=== PATIENT | female | born 1945 | race Two or more races ===

== ENCOUNTER 2018-05-15 09:05 | Outpatient (CLI) | payer OTHER | END 2018-05-15 09:33 | disposition home or self-care (01) | LOC: RAD 501 09:05 | DX: F45.8 Other somatoform disorders (principal); R06.02 Shortness of breath; J32.8 Other chronic sinusitis ==

== ENCOUNTER → 2021-05-24 13:12 | Outpatient (CLI) | payer OTHER | END | disposition home or self-care (01) | LOC: NUCLEAR 13:12 | PROVIDERS: ATTEND Specialist | DX: M81.0 Age-related osteoporosis without current pathological fracture (principal); M79.661 Pain in right lower leg; M79.662 Pain in left lower leg ==

== ENCOUNTER 2021-07-18 10:13 | Outpatient (CLI) | payer OTHER | END 2021-07-18 10:27 | disposition home or self-care (01) | LOC: MAMO-SONO 10:13 | PROVIDERS: ATTEND Specialist | DX: R92.1 Mammographic calcification found on diagnostic imaging of breast (principal); Z12.31 Encounter for screening mammogram for malignant neoplasm of breast; R92.8 Other abnormal and inconclusive findings on diagnostic imaging of breast ==

== ENCOUNTER 2021-10-16 08:44 | Outpatient (CLI) | payer OTHER | END 2021-10-16 08:52 | disposition home or self-care (01) | LOC: SONOGRAMA 08:44 | PROVIDERS: ATTEND Internal Medicine | DX: K80.80 Other cholelithiasis without obstruction (principal); R10.84 Generalized abdominal pain ==

== ENCOUNTER 2021-12-19 07:16 | Outpatient (CLI) | payer OTHER | END 2021-12-19 07:17 | disposition home or self-care (01) | LOC: NUCLEAR 07:16 | PROVIDERS: ATTEND Internal Medicine | DX: K80.80 Other cholelithiasis without obstruction (principal) | CPT/HCPCS: 78227; A9537 ==

== ENCOUNTER 2022-08-20 13:00 | Outpatient (CLI) | payer OTHER | END 2022-08-20 13:05 | disposition home or self-care (01) | LOC: RAD 13:00 | PROVIDERS: ATTEND Internal Medicine | DX: M16.0 Bilateral primary osteoarthritis of hip (principal) ==

== ENCOUNTER 2022-11-26 08:39 | Outpatient (CLI) | payer OTHER | END 2022-11-26 08:45 | disposition home or self-care (01) | LOC: RAD 08:39 | PROVIDERS: ATTEND Internal Medicine | DX: M54.2 Cervicalgia (principal); M54.6 Pain in thoracic spine; M54.17 Radiculopathy, lumbosacral region; S60.552A Superficial foreign body of left hand, initial encounter ==

== ENCOUNTER → 2022-12-10 | Outpatient (CLI) | payer OTHER | END | disposition home or self-care (01) | LOC: MRI 07:46 | PROVIDERS: ATTEND Internal Medicine | DX: M54.17 Radiculopathy, lumbosacral region (principal) | CPT/HCPCS: 72148 ==

== ENCOUNTER 2023-07-09 09:36 | Outpatient (CLI) | payer OTHER | END 2023-07-09 09:41 | disposition home or self-care (01) | LOC: RAD 09:36 | PROVIDERS: ATTEND Physical Medicine & Rehabilitation | DX: M25.551 Pain in right hip (principal); M25.552 Pain in left hip ==

== ENCOUNTER 2023-10-23 10:08 | Outpatient (CLI) | payer OTHER | END 2023-10-23 10:09 | disposition home or self-care (01) | LOC: NUCLEAR 10:08 | PROVIDERS: ATTEND Internal Medicine | DX: M81.0 Age-related osteoporosis without current pathological fracture (principal) ==

== ENCOUNTER 2023-12-10 10:07 | Outpatient (CLI) | payer OTHER | END 2023-12-10 10:14 | disposition home or self-care (01) | LOC: MAMO-SONO 10:07 | PROVIDERS: ATTEND Internal Medicine | DX: N64.4 Mastodynia (principal); R92.8 Other abnormal and inconclusive findings on diagnostic imaging of breast; Z12.31 Encounter for screening mammogram for malignant neoplasm of breast ==

== ENCOUNTER 2024-12-21 08:28 | Outpatient (CLI) | payer OTHER | END 2024-12-21 08:34 | disposition home or self-care (01) | LOC: MAMO-SONO 08:28 | PROVIDERS: ATTEND Student in an Organized Health Care Education/Training Program | DX: N60.11 Diffuse cystic mastopathy of right breast (principal); N60.12 Diffuse cystic mastopathy of left breast; Z12.31 Encounter for screening mammogram for malignant neoplasm of breast ==

== ENCOUNTER 2025-01-31 07:06 | Outpatient (CLI) | payer OTHER ==
[2025-01-31 07:51] LABS: HEMOGLOBIN 11.6 g/dL (12.0-15.00); MEAN CELL VOLUME 88.6 fL (80.00-100.00); MEAN CORPUSCULAR HEMOGLOBIN 30.1 pg (27.00-32.0); PLATELET COUNT 306 K/uL (150-450); RED BLOOD COUNT 3.84 M/uL (4.00-6.00)
[2025-01-31 08:03] LABS: URINE APPEARANCE Clear; URINE BILIRRUBIN Negative (NEGATIVE); URINE BLOOD Negative; URINE COLOR Yellow; URINE GLUCOSE Negative (NEGATIVE); URINE KETONE Negative (NEGATIVE); URINE LEUKOCYTE Negative; URINE NITRATE Negative; URINE PROTEIN Negative (NEGATIVE); URINE UROBILINOGEN 0.2 E.U./dl
[2025-01-31 08:07] LABS: URINE BACTERIA 19.5 uL (0.0-1933); URINE EPITHELIAL CELLS 3.7 uL (0.0-38.8); URINE RBC 3.9 uL (0.0-20.8); URINE WBC 6.1 uL (0.0-23.2)
[2025-01-31 08:08] LABS: URINE CAST 0.14 uL (0.0-1.40)
[2025-01-31 08:56] LABS: ALBUMIN 3.8 gm/dL (3.4-5.0); BILIRUBIN TOTAL 0.36 mg/dL (0.3-1.2); CALCIUM 9.5 mg/dL (8.5-10.1); CREATININE SERUM 0.72 mg/dL (0.55-1.02); FERRITIN 64.7 NG/ML (8-252); GFR 78.34; GLOBULINA 3.2 G/DL (2.4-3.5); POTASSIUM 4.12 mEq/L (3.5-5.1); T4 FREE 0.98 NG/ML (0.76-1.46); TSH 2.48 uIU/mL (0.358-3.74)
[2025-01-31 10:37] LABS: FOLIC ACID > 20.00 ng/ml (4.78-20)
[2025-02-01 08:51] LABS: MANUAL PLATELET COUNT 536; PLATELET ESTIMATE INCREASED (NORMAL)
[2025-02-01 13:09] LABS: hgb a 97.8 % (96.4-98.8); hgb a2 2.2 % (1.8-3.2); hgb f 0 % (0.0-2.0); hgb s 0 % (0.0)
[2025-02-01 17:04] LABS: ERYTHROPOIETIN 11.5 mIU/mL (2.6-18.5)
[2025-02-03 05:05] LABS: g6pd quant 270 (127-427); rbc 3.85 x10E6/uL (3.77-5.28)
[2025-02-03 13:06] LABS: PARIETAL CELL ANTIBODIES 144.5 Units (0.0-20.0)
== END 2025-01-31 07:10 | disposition home or self-care (01) ==
LOC: LAB 07:06
PROVIDERS: ATTEND Internal Medicine Hematology & Oncology
DX: D51.3 Other dietary vitamin B12 deficiency anemia (principal); E11.9 Type 2 diabetes mellitus without complications; I10 Essential (primary) hypertension; E78.2 Mixed hyperlipidemia; D50.8 Other iron deficiency anemias; R79.9 Abnormal finding of blood chemistry, unspecified; R74.02 Elevation of levels of lactic acid dehydrogenase [LDH]; K76.89 Other specified diseases of liver; D63.8 Anemia in other chronic diseases classified elsewhere; D63.1 Anemia in chronic kidney disease; E03.8 Other specified hypothyroidism; E06.3 Autoimmune thyroiditis; N39.0 Urinary tract infection, site not specified; R94.4 Abnormal results of kidney function studies; R80.9 Proteinuria, unspecified

== ENCOUNTER 2025-08-22 10:40 | Outpatient (CLI) | payer OTHER | END 2025-08-22 10:43 | disposition home or self-care (01) | LOC: SONOGRAMA 10:40 | PROVIDERS: ATTEND Pathology Anatomic Pathology | DX: D34 Benign neoplasm of thyroid gland (principal); E07.89 Other specified disorders of thyroid; E04.2 Nontoxic multinodular goiter ==